=== PATIENT | male | born 1960 ===

== ENCOUNTER 2021-05-31 18:15 | Emergency (ER) | payer BC ==
[2021-05-31] MEDS ORDERED: Tetracaine HCl/PF 0.5% 4 ML Bottle EYELF ONE (18:59)
[2021-05-31] MEDS ORDERED: Fluorescein 1 MG Ophth Strip EYELF ONE (18:59)
[2021-05-31] MEDS ORDERED: Polymyxin B/Trimethoprim 10 ML Bottle ONE (19:33)
[2021-05-31] MEDS ORDERED: Bacitracin/Polymyxin B Ophth Oint 3.5 GM Tube ONE (19:35)
== END 2021-05-31 19:41 | disposition home or self-care (01) ==
LOC: DL.ED 18:15
DX: T15.02XA Foreign body in cornea, left eye, initial encounter (principal)
CPT/HCPCS: 99283; A9270-GY

== ENCOUNTER 2023-12-25 21:08 | Emergency (ER) | payer BC | END 2023-12-25 21:46 | disposition home or self-care (01) | LOC: MERGE 21:08 → DL.ED 21:08 | DX: M62.831 Muscle spasm of calf (principal) | CPT/HCPCS: 99282; 99283 ==

== ENCOUNTER 2024-04-21 09:07 | Emergency (ER) | payer BC ==
[2024-04-21] MEDS: methylPREDNISolone Sodium Succinate 40 MG/1 ML SDV IM ONE (09:35)
[2024-04-21] MEDS: Sodium Chloride 0.9% 10 ML Syringe FLUSH PRN (10:08)
[2024-04-21] MEDS: Sodium Chloride 0.9% 1,000 ML IV ONE (10:08)
== END 2024-04-21 11:06 | disposition home or self-care (01) ==
LOC: DL.ED 09:07
DX: U07.1 COVID-19 (principal); J02.9 Acute pharyngitis, unspecified
CPT/HCPCS: 82947; 87081; 87428; 87430; 96360; 96372; 99283; J2919; J7030

== ENCOUNTER 2025-01-25 11:46 | Emergency (ER) | payer BC ==
[2025-01-25] MEDS ORDERED: Fluorescein 1 MG Ophth Strip EYERT ONE (12:12)
== END 2025-01-25 13:04 | disposition home or self-care (01) ==
LOC: DL.ED 11:46
DX: S05.01XA Injury of conjunctiva and corneal abrasion without foreign body, right eye, initial encounter (principal); E78.00 Pure hypercholesterolemia, unspecified; X58.XXXA Exposure to other specified factors, initial encounter; Y93.89 Activity, other specified
CPT/HCPCS: 99283; A9270